=== PATIENT | male | born 1995 | race African-American/Black ===

== ENCOUNTER → 2024-05-21 11:30 | Outpatient (REF) | payer OTHER, SELFPAY ==
[2024-05-21 12:48] LABS: Rubella Positive
[2024-05-21 14:20] LABS: Hepatitis B Surface Antibody Positive
[2024-05-23 05:12] LABS: Quantiferon TB Gold Plus Negative (Negative)
== END ==
LOC: RAD 11:30
PROVIDERS: ATTENDING PHYSICIAN Nurse Practitioner Family
DX: Z23 Encounter for immunization (principal)
CPT/HCPCS: 36415; 86480; 86706; 86735; 86762; 86765; 86787